=== PATIENT | male | born 1995 | race Caucasian/White ===

== ENCOUNTER 2017-09-21 15:43 | Emergency (ER) | payer MEDICAID, OTHER ==
[~2017-09-21] VITALS: Ht 170.2 cm; Wt 64.0 kg
[2017-09-21 16:20] VITALS: BP 137/75
[2017-09-21] MEDS ORDERED: IBUPROFEN 600 MG TAB PO ONE (17:00)
== END 2017-09-21 17:26 | disposition home or self-care (01) ==
LOC: ER 15:43
DX: S43.101A Unspecified dislocation of right acromioclavicular joint, initial encounter (principal); W00.2XXA Other fall from one level to another due to ice and snow, initial encounter; Y93.23 Activity, snow (alpine) (downhill) skiing, snowboarding, sledding, tobogganing and snow tubing; Y92.89 Other specified places as the place of occurrence of the external cause; Y99.8 Other external cause status
CPT/HCPCS: 73030

== ENCOUNTER 2018-02-05 04:42 | Emergency (ER) | payer MEDICAID ==
[~2018-02-05] VITALS: Ht 170.2 cm; Wt 77.1 kg
[2018-02-05 07:19] LABS: Urine Bacteria NONE SEEN /hpf (None Seen); Urine Blood Negative /uL (Negative); Urine Specific Gravity 1.028 (1.001-1.035); Urine WBC <1 /hpf (0 - 3)
[2018-02-05] MEDS ORDERED: METOCLOPRAMIDE HCL 5MG/ml INJ 2ml VIAL IV ONE (08:15)
[2018-02-05] MEDS ORDERED: KETOROLAC TROMETH 30 MG/ML 1ML VIAL IV ONE (08:15)
[2018-02-05] MEDS ORDERED: SODIUM CHLORIDE 0.9% 1,000 ML IV ONE (08:15)
[2018-02-05] MEDS ORDERED: TAMSULOSIN HYDROCHLORIDE 0.4 MG CAP PO ONE (08:15)
[2018-02-05 12:30] VITALS: BP 128/65
== END 2018-02-05 13:03 | disposition home or self-care (01) ==
LOC: ER 04:47
DX: M62.830 Muscle spasm of back (principal); Z87.442 Personal history of urinary calculi
CPT/HCPCS: 71046; 74176; 81001; 96361; 96374; 96375; 99285; J1885; J2765; J7030